=== PATIENT | male | born 1945 | race Caucasian/White ===

== ENCOUNTER 2023-09-30 15:25 | Emergency (ER) | payer MEDICARE ==
[2023-09-30 15:47] VITALS: O2SAT 100
[2023-09-30 18:04] LABS: B. PARAPERTUSSIS- RESP PCR PAN NOT DETECTED; B. PERTUSSIS- RESP PCR PANEL NOT DETECTED; C. PNEUMONIAE- RESP PCR PANEL NOT DETECTED; CORONAVIRUS 229E-RESP PCR NOT DETECTED; CORONAVIRUS HKU1-RESP PCR NOT DETECTED; CORONAVIRUS NL63-RESP PCR NOT DETECTED; CORONAVIRUS OC43-RESP PCR NOT DETECTED; HUMAN METAPNEUMOVIRUS NOT DETECTED; INFLUENZA A- RESP PCR PANEL NOT DETECTED; INFLUENZA B - RESP PCR PANEL NOT DETECTED; M. PNEUMONIAE- RESP PCR PANEL NOT DETECTED; PARAINFLUENZA VIRUS 1 NOT DETECTED; PARAINFLUENZA VIRUS 2 NOT DETECTED; PARAINFLUENZA VIRUS 3 NOT DETECTED; PARAINFLUENZA VIRUS 4 NOT DETECTED; RHINOVIRUS/ENTEROVIRUS NOT DETECTED; RSV- RESP PCR PANEL NOT DETECTED; SARS-CoV-2 -RESP PCR PANEL NOT DETECTED
--- NOTE | 2023-09-30 18:24 | ED Physician Documentation ---
History of Present Illness - Stated complaint Stated Complaint: DIZZY,UNWELL - Chief complaint Chief Complaint: General - History obtained from History obtained from: Patient - History of Present Illness Timing: How many weeks ago (2) Pain level max: 4 Pain level now: 3 - Additonal information Additional information: Patient is an 78-year-old male who presents to the emergency department with sinus congestion and sinus pressure for the past 2 weeks. Has felt slightly off balance as well. No fevers. Mild, dry cough. Nothing seems to make it better or worse. No nausea or vomiting. No falls. No head injury. He states that this started when he was in [place], he lives there half the year and lives here the other half of the year. He states he took a negative COVID test. He states he feels like he is having significant sinus pain and pressure. Review of Systems Constitutional: denies: Fever Ears: denies: Ear pain Nose: reports: Congestion, Sinus pressure / pain. denies: Rhinorrhea / runny nose Throat: denies: Sore throat Cardiac: denies: Chest pain / pressure Respiratory: reports: Cough (Mild, occasional, dry). denies: Dyspnea, Wheezing GI: denies: Abdominal Pain, Nausea, Vomiting, Diarrhea Skin: denies: Rash PD PAST MEDICAL HISTORY - Past Medical History Cardiovascular: Hypertension, High cholesterol, Valve disorder GI: Other - Past Surgical History Past Surgical History: Yes General: Bowel surgery, Other Cardiovascular: Valve replacement, Vascular surgery - Present Medications Home Medications: Ambulatory Orders Medication Instructions Recorded Confirmed Amox/Clav 875/125 [Augmentin] 1 tab PO Q12H #14 tablet 09/30/23 Aspirin [Vazalore] 81 mg PO DAILY 09/30/23 09/30/23 Atorvastatin [Lipitor] 40 mg PO DAILY 09/30/23 09/30/23 Cetirizine [ZyrTEC] 10 mg PO DAILY #14 tablet 09/30/23 Lisinopril [Zestril] 10 mg PO DAILY 09/30/23 09/30/23 Metoprolol Tartrate [Lopressor] 25 mg PO DAILY 09/30/23 09/30/23 - Allergies Allergies/Adverse Reactions: Allergies Allergy/AdvReac Type Severity Reaction Status Date / Time No Known Drug Allergies Allergy Verified 09/30/23 15:48 - Social History Does the pt smoke?: Yes Smoking Status: Light tobacco smoker Does the pt drink ETOH?: No Does the pt have substance abuse?: No - Immunizations Immunizations are current?: Yes PD ED PE NORMAL - Vitals Vital signs reviewed: Yes - General General: Alert and oriented X 3, No acute distress - HEENT HEENT: PERRL, Ears normal, Moist mucous membranes, Pharynx benign, Other (Tenderness to palpation over the frontal and maxillary sinuses.) - Neck Neck: Supple, no meningeal sign, No bony TTP, No adenopathy - Cardiac Cardiac: RRR, Strong equal pulses - Respiratory Respiratory: No respiratory distress, Clear bilaterally - Abdomen Abdomen: Soft, Non tender, Non distended - Derm Derm: Warm and dry, No rash - Neuro Neuro: Alert and oriented X 3 - Psych Psych: Normal mood, Normal affect Results - Vitals Vitals: Vital Signs - 24 hr 09/30/23 09/30/23 09/30/23 15:35 17:08 19:02 Temperature 36.4 C L 36.2 C L Heart Rate 61 60 64 Respiratory 16 17 16 Rate Blood Pressure 145/61 H 142/64 H 124/59 L O2 Saturation 100 100 100 Oxygen O2 Source Room air - Labs Labs: Laboratory Tests 09/30/23 17:02 Nasal Adenovirus (PCR) NOT DETECTED Nasal B. parapertussis DNA (PCR) NOT DETECTED Nasal Coronavir 229E PCR NOT DETECTED Nasal Coronavir HKU1 PCR NOT DETECTED Nasal Coronavir NL63 PCR NOT DETECTED Nasal Coronavir OC43 PCR NOT DETECTED Nasal Enterovir/Rhinovir PCR NOT DETECTED Nasal Influenza B PCR NOT DETECTED Nasal Influenza A PCR NOT DETECTED Nasal Parainfluen 1 PCR NOT DETECTED Nasal Parainfluen 2 PCR NOT DETECTED Nasal Parainfluen 3 PCR NOT DETECTED Nasal Parainfluen 4 PCR NOT DETECTED Nasal RSV (PCR) NOT DETECTED Nasal B.pertussis DNA PCR NOT DETECTED Nasal C.pneumoniae (PCR) NOT DETECTED Andrea Human Metapneumo PCR NOT DETECTED Nasal M.pneumoniae (PCR) NOT DETECTED Nasal SARS-CoV-2 (PCR) NOT DETECTED PD Medical Decision Making - ED course Complexity details: reviewed results, re-evaluated patient, considered differential, d/w patient ED course: 78-year-old male with what sounds to be a sinus infection causing him to feel slightly off balance. Normal neurological exam here. GCS 15. Normal gait. No vertiginous symptoms. No nystagmus. Respiratory PCR is negative. We will treat as a sinus infection with Zyrtec and Augmentin. Patient counseled regarding signs and symptoms for which I believe and urgent re-evaluation would be necessary. Patient with good understanding of and agreement to plan and is comfortable going home at this time This document was made in part using voice recognition software. While efforts are made to proofread this document, sound alike and grammatical errors may occur. Departure - Departure Disposition: Home, Self Care Clinical Impression: Sinusitis Qualifiers: Sinusitis location: unspecified location Chronicity: acute Recurrence: non- recurrent Qualified Code(s): J01.90 - Acute sinusitis, unspecified Condition: Good Instructions: ED Sinusitis Abx Tx Follow-Up: your,doctor as needed [Other] Prescriptions: Amox/Clav 875/125 [Augmentin] 1 tab PO Q12H #14 tablet Cetirizine [ZyrTEC] 10 mg PO DAILY #14 tablet Comments: Your prescriptions were sent to [facility] in [place]. Please take all antibiotics until gone. The Zyrtec will help to decrease the sinus congestion as well. You should start to improve over the next few days, please return if you worsen. Your respiratory swab is negative today. Forms: PCP List Discharge Date/Time: 09/30/23 19:03
[2023-09-30] MEDS: CETIRIZINE 10 MG TABLET PO STA (18:53)
[2023-09-30] MEDS: AMOX/CLAV 875 MG/125 MG TABLET PO STA (18:53)
[2023-09-30 19:11] VITALS: BP 124/59
== END 2023-09-30 19:03 | disposition home or self-care (01) ==
LOC: ED 15:25
DX: J01.90 Acute sinusitis, unspecified (principal); I10 Essential (primary) hypertension; Z95.2 Presence of prosthetic heart valve; F17.210 Nicotine dependence, cigarettes, uncomplicated
CPT/HCPCS: 87633; 99283; A9270

== ENCOUNTER 2023-10-20 12:39 | Outpatient (CLI) | payer MEDICARE | END 2023-10-20 23:59 | disposition critical access hospital (66) | LOC: EMS 12:39 | DX: R07.89 Other chest pain (principal); R06.09 Other forms of dyspnea; I48.91 Unspecified atrial fibrillation | CPT/HCPCS: A0425; A0427 ==

== ENCOUNTER 2023-10-20 13:09 | Emergency (ER) | payer MEDICARE ==
--- NOTE | 2023-10-20 13:28 | ED Physician Documentation ---
PD HPI DYSPNEA - Stated complaint Stated Complaint: SOA - Chief complaint Chief Complaint: Cardiac - History obtained from History obtained from: Patient - History of Present Illness Timing - onset: How many weeks ago (pt with increasing dypsnea with activity over the past month, coming in variable degrees. More consistent the past several days or so. No notable weight gain. Some leg edema. No URI symptoms.) Timing - onset during: Light activity Timing - details: Gradual onset, Still present, Waxing and waning Inciting event(s): No: URI, Immobilization/travel Improved by: Rest, Sitting up Worsened by: Exertion, Laying flat Associated symptoms: Palpitations (he does have sense at times of HR seeming fast but does not have way of measuring heart rate at home. Currently in ED he does not feel that HR is fast, though monitor is showing atrial flutter at 137.), Bilateral edema. No: Fever, Cough, Wheezing, Chest pain / discomfort Review of Systems Constitutional: denies: Fever, Chills Nose: denies: Rhinorrhea / runny nose, Congestion Throat: denies: Sore throat Respiratory: denies: Cough GI: denies: Abdominal Pain, Nausea, Vomiting, Diarrhea : reports: Frequency. 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 ) Respiratory: Asthma Neuro: None Endocrine/Autoimmune: None GI: Other - Past Surgical History Past Surgical History: Yes General: Bowel surgery, Other Cardiovascular: Valve replacement, Vascular surgery - Present Medications Home Medications: Ambulatory Orders Medication Instructions Recorded Confirmed Aspirin [Vazalore] 81 mg PO DAILY 09/30/23 10/20/23 Atorvastatin [Lipitor] 40 mg PO DAILY 09/30/23 10/20/23 Lisinopril [Zestril] 10 mg PO DAILY 09/30/23 10/20/23 Metoprolol Tartrate [Lopressor] 12.5 mg PO BID 09/30/23 10/20/23 Apixaban [Eliquis] 5 mg PO BID #40 tablet 10/20/23 Magnesium Oxide [Mag Ox] 400 mg PO DAILY #30 tablet 10/20/23 Metoprolol Succinate [Toprol Xl] 75 mg PO DAILY 30 Days #45 tablet 10/20/23 - Allergies Allergies/Adverse Reactions: Allergies Allergy/AdvReac Type Severity Reaction Status Date / Time No Known Drug Allergies Allergy Verified 10/20/23 13:17 - Social History Does the pt smoke?: Yes Smoking Status: Current every day smoker Does the pt drink ETOH?: No Does the pt have substance abuse?: No - Immunizations Immunizations are current?: Yes PD ED PE NORMAL - Vitals Vital signs reviewed: Yes - General General: Alert and oriented X 3, No acute distress, Well developed/nourished - Neck Neck: Supple, no meningeal sign, No adenopathy, Other (mild JVD at 45 degrees. ) - Cardiac Cardiac: No: RRR (regular but tachycardic at fairly strictly 137-138 without variability. ) - Respiratory Respiratory: No respiratory distress. No: Clear bilaterally (faint crackles at bases only.) - Abdomen Abdomen: Soft, Non tender - Derm Derm: Normal color, Warm and dry - Extremities Extremities: No tenderness to palpate, Normal ROM s pain, Other (1+ edmea in both lower legs. No calf tenderness. ) - Neuro Neuro: Alert and oriented X 3, No motor deficit, Normal speech Results - Vitals Vitals: Vital Signs - 24 hr 10/20/23 10/20/23 10/20/23 13:17 13:31 14:30 Temperature 37.1 C Heart Rate 130 H 137 H 134 H Respiratory 18 20 22 Rate Blood Pressure 112/76 116/81 H 121/90 H O2 Saturation 98 97 97 10/20/23 10/20/23 10/20/23 14:36 14:46 16:08 Temperature Heart Rate 104 H 112 H 69 Respiratory 26 H 23 22 Rate Blood Pressure 108/83 H 95/53 L 92/55 L O2 Saturation 96 96 96 10/20/23 10/20/23 16:25 17:03 Temperature Heart Rate 77 80 Respiratory 20 24 Rate Blood Pressure 92/55 L 116/71 O2 Saturation 98 96 Oxygen O2 Source Room air - EKG (time done) 13:22 EKG releavant findings:: EKG personally interpreted by author of this note. Relevant findings are: Rate: Rate (enter#) (136) Rhythm: Atrial flutter QRS: LVH Ischemia: Normal ST segments. No: ST elevation c/w ischemia, ST depression 15:05 EKG releavant findings:: EKG personally interpreted by author of this note. Relevant findings are: Rate: Rate (enter#) (62) Rhythm: NSR [place]: Normal Ischemia: Normal ST segments. No: ST elevation c/w ischemia, ST depression - Labs Labs: Laboratory Tests 10/20/23 10/20/23 10/20/23 13:37 13:37 13:37 WBC 8.6 RBC 4.74 Hgb 12.8 L Hct 38.9 L MCV 82.1 MCH 27.0 MCHC 32.9 RDW 13.6 Plt Count 140 MPV 10.4 Neut # (Auto) 6.3 Lymph # (Auto) 1.2 L [place] # (Auto) 1.0 Eos # (Auto) 0.1 Baso # (Auto) 0.0 Absolute Nucleated RBC 0.00 Nucleated RBC % 0.0 Sodium 132 L Potassium 4.7 H Chloride 102 Carbon Dioxide 22 Anion Gap 8.0 BUN 23 H Creatinine 1.1 Estimated GFR (MDRD) 64 L Glucose 115 H Calcium 9.3 Phosphorus 3.4 Magnesium 1.6 L Total Bilirubin 1.0 AST 24 ALT 31 Alkaline Phosphatase 73 Troponin I High Sens 190.4 H* B-Natriuretic Peptide Total Protein 6.6 Albumin 3.5 Globulin 3.1 Albumin/Globulin Ratio 1.1 Lipase 19 TSH 1.71 10/20/23 13:37 WBC RBC Hgb Hct MCV MCH MCHC RDW Plt Count MPV Neut # (Auto) Lymph # (Auto) [place] # (Auto) Eos # (Auto) Baso # (Auto) Absolute Nucleated RBC Nucleated RBC % Sodium Potassium Chloride Carbon Dioxide Anion Gap BUN Creatinine Estimated GFR (MDRD) Glucose Calcium Phosphorus Magnesium Total Bilirubin AST ALT Alkaline Phosphatase Troponin I High Sens B-Natriuretic Peptide 639 H Total Protein Albumin Globulin Albumin/Globulin Ratio Lipase TSH PD Medical Decision Making - ED course Complexity details: reviewed results, considered differential (patient triage showing increased steady HR at 137-138 c/w atrial flutter. No known history of this. Some elements of CHF but not too bad edema nor lung crackles. I think rate related dyspnea and some CHF. ), d/w patient, d/w managed services consultant (Dr. Morel, Cardiology in [place], who is familiar with the patient. Pt had nuclear stress and ECHO last fall without any ischemic findings and had good EF. He does not feel the elevated troponin is needing further workup, but would be reasonably rate related. ) Reviewed Lab Results: ECG showing tachycardia, but the rate on monitor is too consistent and so Dx atrial flutter with likley 2:1 block. Unknown duration of it and he is not anticoagulated. So not cardioversion. Will go for rate control with beta mackenzie. Some diuresis. Patient rate slowed with meds and he converted to NSR on his own. Feeling okay and less feeling of dyspnea. His cotton opener is Dr. Adriel Mo. Consulted this provider and he directed changing Metoprolol from tartrate 25 mg ibd to succinate 75 mg daily and add eliquis at prophylactic dosing. F/U in office. Departure - Departure Disposition: 01 Home, Self Care Clinical Impression: Dyspnea, Atrial flutter with rapid ventricular response, CAD (coronary artery disease), Low magnesium level Condition: Stable Record reviewed to determine appropriate education?: Yes Follow-Up: Simone Morel MD [Provider Admit Priv/Credential] - Prescriptions: Apixaban [Eliquis] 5 mg PO BID #40 tablet Magnesium Oxide [Mag Ox] 400 mg PO DAILY #30 tablet Metoprolol Succinate [Toprol Xl] 75 mg PO DAILY 30 Days #45 tablet Comments: You were in atrial flutter at a rate of 1 36-1 40. I think this was the cause of your symptoms and likely has been present for several days and likely intermittent recently. No signs of significant heart failure per se. Your kidney function is adequate. Main electrolytes are good with the exception of a mildly low magnesium. This does interplay with the heart rhythm and conduction a bit so being that a more normal level would be appropriate. I did talk with your cotton opener, Dr. Beatrice Hoover. He would like us to change from your current metoprolol to tartrate 25 mg twice a day to a longer acting version called metoprolol succinate at 75 mg once daily. He would also like us to add a blood thinner called Eliquis 5 mg twice daily. Stop your current metoprolol and replace with the newer version. Other medicines to stay the same. Follow-up with your cotton opener in the office as planned. Return to the ER as needed. Forms: PCP List Discharge Date/Time: 10/20/23 17:06
--- NOTE | 2023-10-20 13:40 | XRAY Report ---
PROCEDURE: Chest 1V INDICATIONS: Chest pain TECHNIQUE: One view of the chest was acquired. COMPARISON: None. FINDINGS: Surgical changes and devices: None. Lungs and pleura: No pleural effusions or pneumothorax. Lungs are clear. Mediastinum: Mediastinal contours appear normal. Heart size is normal. Bones and chest wall: No suspicious bony lesions. Overlying soft tissues appear unremarkable. David te and screw fixation of the sternum and anterior ribs. IMPRESSION: No acute cardiopulmonary process. Reviewed by: Betito Hardwick MD on 10/20/2023 12:39 PM AKDT Approved by: Betito Hardwick MD on 10/20/2023 12:39 PM AKDT Station ID: [id number]
[2023-10-20 13:42] LABS: BASOPHILS % (AUTO) 0.5 %; EOSINOPHILS # (AUTO) 0.1 10^3/uL (0.0-0.7); EOSINOPHILS % (AUTO) 0.7 %; HCT - HEMATOCRIT 38.9 % (42.0-52.0); HGB - HEMOGLOBIN 12.8 g/dL (14.0-18.0); LYMPHOCYTES # (AUTO) 1.2 10^3/uL (1.5-3.5); LYMPHOCYTES % (AUTO) 13.9 %; MEAN CORPUSCULAR HGB CONC 32.9 g/dL (32.0-36.0); MEAN CORPUSCULAR VOLUME 82.1 fL (80.0-94.0); MEAN PLATELET VOLUME 10.4 fL (7.4-11.4); MONOCYTES % (AUTO) 11.1 %; NEUTROPHILS # (AUTO) 6.3 10^3/uL (1.5-6.6); NEUTROPHILS % (AUTO) 73.6 %; PLT - PLATELET COUNT 140 10^3/uL (130-450); RED BLOOD COUNT 4.74 10^6/uL (4.70-6.10); RED CELL DISTRIBUTION WIDTH 13.6 % (12.0-15.0); WHITE BLOOD COUNT 8.6 x10^3/uL (4.8-10.8)
[2023-10-20 13:56] LABS: ALBUMIN 3.5 g/dL (3.2-5.5); ALBUMIN/GLOBULIN RATIO 1.1 (1.0-2.2); CALCIUM 9.3 mg/dL (8.5-10.3); CREATININE 1.1 mg/dL (0.6-1.3); POTASSIUM 4.7 mmol/L (3.5-4.5); TOTAL PROTEIN 6.6 g/dL (6.4-8.9)
[2023-10-20 14:05] LABS: TROPONIN I HIGH SENSITIVITY 190.4 ng/L (2.3-19.7)
[2023-10-20] MEDS: METOPROLOL 5 MG/5 ML VIAL IVP STA (14:27)
[2023-10-20 14:44] LABS: MAGNESIUM 1.6 mg/dL (1.7-2.3); PHOSPHORUS 3.4 mg/dL (2.5-5.0)
[2023-10-20 14:58] LABS: THYROID STIMULATING HORMONE 1.71 uIU/mL (0.34-5.60)
[2023-10-20] MEDS: MAGNESIUM SULFATE 2 GRAM 2 GM/50 ML BAG IV ONE (15:33)
[2023-10-20] MEDS: SODIUM CHLORIDE 0.9% 500 ML IV STA ×2 (15:53→16:20)
[2023-10-20] MEDS: APIXABAN 5 MG TABLET PO STA (16:22)
[2023-10-20] MEDS: METOPROLOL SUCCINATE 50 MG TABLET PO STA (16:22)
[2023-10-20 17:04] VITALS: BP 116/71; O2SAT 96
== END 2023-10-20 17:06 | disposition home or self-care (01) ==
LOC: EDUNIT# → ED 13:09
DX: I48.92 Unspecified atrial flutter (principal); R06.00 Dyspnea, unspecified; I25.10 Atherosclerotic heart disease of native coronary artery without angina pectoris; E83.42 Hypomagnesemia; I10 Essential (primary) hypertension; E78.00 Pure hypercholesterolemia, unspecified; F17.200 Nicotine dependence, unspecified, uncomplicated; Z79.82 Long term (current) use of aspirin; Z79.899 Other long term (current) drug therapy; Z79.01 Long term (current) use of anticoagulants
CPT/HCPCS: 36415; 71045; 80053; 83690; 83735; 83880; 84100; 84443; 84484; 85025; 93005; 96361; 96365; 96375; 99284; A9270

== ENCOUNTER 2023-11-07 13:11 | Outpatient (CLI) | payer MEDICARE | END 2023-11-07 13:12 | disposition short-term general hospital (02) | LOC: EMS 13:11 | DX: R42 Dizziness and giddiness (principal); R53.81 Other malaise; I95.9 Hypotension, unspecified; R00.0 Tachycardia, unspecified | CPT/HCPCS: A0425; A0427; A0888 ==

== ENCOUNTER 2023-11-12 11:25 | Outpatient (CLI) | payer MEDICARE | END 2023-11-12 23:59 | disposition EMS.NT | LOC: EMS 11:25 | DX: R53.83 Other fatigue (principal) ==